=== PATIENT | male | born 1995 | race Caucasian/White ===

== ENCOUNTER 2019-03-15 09:30 | Outpatient (CLI) | payer OTHER, SELFPAY ==
--- NOTE | 2019-03-15 09:51 | EST_ITS ---
Patient Info Name: Hermes Schaeffer Age: 23 years : 1995 Gender: Male Ht: 68 in Wt: 260 lbs BSA: 2.43 m2 Exam Date: 03/15/2019 10:12 AM Exam Location: [facility] Stress Patient Status: Outpatient Admit Date: 03/15/2019 Staff Ordering Physician: Epifanio Cooper DO Attending Provider: Epifanio Cooper DO Exercise Technologist: Nancy Ledesma RDCS Exercise Physician: Epifanio Cooper DO Exam Type: CA stress test treadmill Study Info Indications R07.89 - Other chest pain A treadmill exercise stress test was performed. Summary 1. 1. Negative Brian exercise stress test for ischemic ST changes by ECG criteria. 2. 2. Good functional capacity, achieving 10 METs of workload. 3. 3. Appropriate HR response to exercise. 4. 4. Appropriate HR recovery at 1 minute post exercise. 5. 5. No imaging with stress testing. 6. 6. Patient informed of the above results. Protocol: Brian Stress ECG Details Stage: REST Duration (min): 1 min : 57 sec Speed (mph): 0.0 Grade (%): 0 HR (bpm): 86 SBP (mmHg): 131 DBP (mmHg): 65 METS: --- Stage: REST Duration (min): 10 min : 56 sec Speed (mph): 0.0 Grade (%): 0 HR (bpm): 95 SBP (mmHg): 131 DBP (mmHg): 65 METS: --- Stage: STAGE 1 Duration (min): 1 min : 0 sec Speed (mph): 1.7 Grade (%): 10 HR (bpm): 114 SBP (mmHg): 131 DBP (mmHg): 65 METS: --- Stage: STAGE 1 Duration (min): 2 min : 0 sec Speed (mph): 1.7 Grade (%): 10 HR (bpm): 120 SBP (mmHg): 131 DBP (mmHg): 65 METS: --- Stage: STAGE 1 Duration (min): 3 min : 0 sec Speed (mph): 1.7 Grade (%): 10 HR (bpm): 119 SBP (mmHg): 145 DBP (mmHg): 63 METS: --- Stage: STAGE 2 Duration (min): 1 min : 0 sec Speed (mph): 2.5 Grade (%): 12 HR (bpm): 135 SBP (mmHg): 145 DBP (mmHg): 63 METS: --- Stage: STAGE 2 Duration (min): 2 min : 0 sec Speed (mph): 2.5 Grade (%): 12 HR (bpm): 139 SBP (mmHg): 180 DBP (mmHg): 54 METS: --- Stage: STAGE 2 Duration (min): 3 min : 0 sec Speed (mph): 2.5 Grade (%): 12 HR (bpm): 144 SBP (mmHg): 180 DBP (mmHg): 54 METS: --- Stage: STAGE 3 Duration (min): 1 min : 0 sec Speed (mph): 3.4 Grade (%): 14 HR (bpm): 161 SBP (mmHg): 170 DBP (mmHg): 103 METS: --- Stage: STAGE 3 Duration (min): 2 min : 0 sec Speed (mph): 3.4 Grade (%): 14 HR (bpm): 165 SBP (mmHg): 170 DBP (mmHg): 103 METS: --- Stage: STAGE 3 Duration (min): 3 min : 0 sec Speed (mph): 3.4 Grade (%): 14 HR (bpm): 171 SBP (mmHg): 210 DBP (mmHg): 61 METS: --- Stage: RECOVERY Duration (min): 0 min : 59 sec Speed (mph): 0.0 Grade (%): 0 HR (bpm): 137 SBP (mmHg): 161 DBP (mmHg): 55 METS: --- Stage: RECOVERY Duration (min): 1 min : 59 sec Speed (mph): 0.
== END 2019-03-15 09:31 | disposition home or self-care (01) ==
PROVIDERS: PCP Emergency Medicine; Visit Provider Internal Medicine Cardiovascular Disease
DX: R07.9 Chest pain, unspecified (principal)
CPT/HCPCS: 93017

== ENCOUNTER 2019-03-19 10:40 | Outpatient (CLI) | payer OTHER, SELFPAY ==
--- NOTE | ~2019-03-19 | MR_ITS ---
EXAMINATION: MR lumbar spine wo con DATE: 03/19/2019 11:29 INDICATION: Low back pain. TECHNIQUE: Magnetic resonance imaging (MRI) of the lumbar spine was performed without intravenous con trast. Sequences included sagittal T2-weighted FSE, sagittal T2-weighted FS FSE, sagittal T1-weighted FSE, and axial T2-weighted FSE. COMPARISON: Lumbar spine radiographs 10/01/2018 FINDINGS: There is 10 degrees levoscoliosis of lumbar spine. There are chronic bilateral L5 pars defe cts. There is 5 mm anterolisthesis of L5 on S1. There is mild chronic height loss of L5 vertebral bod y posteriorly. There are Schmorl's nodes at all levels. There is mild chronic anterior wedging of T11 and T12 vertebral bodies. There is mildly decreased disc height at L4-L5. The osseous central spinal canal is developmentally small at L2 and L3. The distal spinal cord signal intensity is normal. The conus medullaris is at L1. The following disc levels are specifically discussed: L1-L2: The disc does not extend beyond the endplate margin. There is mild bilateral facet joint osteo arthritis. There is no neural foraminal stenosis. There is no central canal stenosis. L2-L3: The disc does not extend beyond the endplate margin. There is mild bilateral facet joint osteo arthritis. There is no neural foraminal stenosis. There is mild central canal stenosis. L3-L4: The disc does not extend beyond the endplate margin. There is mild bilateral facet joint osteo arthritis. There is no neural foraminal stenosis. There is mild central canal stenosis. L4-L5: The disc is bulging and has an annular fissure. There is mild bilateral facet joint osteoarthr itis. There is mild bilateral neural foraminal stenosis. There is mild central canal stenosis. L5-S1: The disc does not extend beyond the endplate margin. There is mild bilateral facet joint osteo arthritis. There is mild bilateral neural foraminal stenosis. There is no central canal stenosis. IMPRESSION: 1. Mild lumbar spondylosis. 2. Chronic bilateral L5 pars defects with grade 1 anterolisthesis of L5 on S1. 3. Lumbar levoscoliosis. Reviewed, dictated and finalized at location A. N COORDINATOR
== END 2019-03-19 10:41 | disposition home or self-care (01) ==
PROVIDERS: PCP Emergency Medicine
DX: M47.896 Other spondylosis, lumbar region (principal)
CPT/HCPCS: 72148

== ENCOUNTER 2019-11-03 19:27 | Emergency (ER) | payer OTHER, SELFPAY ==
[2019-11-03 19:40] VITALS: BP 171/89; PULSE 99; RESP 16; TEMP 37.4; O2SAT 98
--- NOTE | 2019-11-03 19:50 | ED.URI ---
HPI - URI/Sore Throat General Chief Complaint: Upper Respiratory Infection Stated Complaint: runny/stuffy nose Time Seen by Provider: 11/03/19 19:42 Source: patient and RN notes reviewed Mode of arrival: ambulatory Limitations: no limitations History of Present Illness HPI Narrative: Patient presents today complaining of nasal congestion, sneezing, nonproductive cough since yesterday. Denies fever, shortness of breath, sore throat, ear pain, nausea, vomiting, diarrhea, loss of sense of taste or smell. He took 1 dose of Zyrtec yesterday without relief, and has tried no other [id number] interventions prior to arrival. Denies history of seasonal allergies. History of tonsillectomy and adenoidectomy. History of ear tubes x4 as a child. Smokes 1 pack/day. MD elicited complaint: cough and nasal congestion Related Data Home Medications Medication Instructions Recorded Confirmed No Home Medications 11/03/19 11/03/19 Allergies Allergy/AdvReac Type Severity Reaction Status Date / Time azithromycin Allergy Unknown Unknown Verified 02/23/19 14:02 Sulfa (Sulfonamide Allergy Unknown Unknown Verified 02/23/19 14:02 Antibiotics) cefprozil [From Cefzil] Allergy Hives Verified 11/03/19 19:44 Review of Systems Review of Systems: Narrative: CONSTITUTIONAL: Denies body aches, fever, chills, or sweats. EYES: Denies visual changes, redness, or discharge. ENT: Denies rhinorrhea, sore throat, or otalgia. + Nasal congestion, sneezing CARDIOVASCULAR: Denies chest pain, palpitations, or edema. RESPIRATORY: Denies dyspnea. + Cough GASTROINTESTINAL: Denies abdominal pain, nausea, vomiting, or diarrhea. GENITOURINARY: Denies dysuria or hematuria. SKIN: Denies rash, itching, or wounds. MUSCULOSKELETAL: Denies back pain, joint pain, or myalgia. NEUROLOGIC: Denies headache, numbness, tingling, or weakness. PSYCH: Denies depression or anxiety. [facility] Past Medical History Medical History (Updated 11/04/19 @ 00:00 by [facility]) Chest pain in adult Surgical History Surgical History (Updated 02/17/19 @ 16:18 by Katia Sterling [facility]) History of cardiac radiofrequency ablation (RFA) History of tonsillectomy Family History Family History (Updated 10/04/18 @ 16:01 by DOCTOR UNKNOWN) Father Hypertension Mother Patient's mother is in good health Sibling Patient's sister is in good health Social History Social History (Updated 02/17/19 @ 16:18 by Katia Sterling [facility]) Smoking status: Unknown if ever smoked Gender identity (if verbalized by the patient): Male Comments At time of signature, I have reviewed and agree with nursing past medical, surgical, social and family history unless otherwise noted. Please see nursing chart for further information. There is no relevant family history pertinent to the presenting complaint Exam Narrative: Exam Narrative: GENERAL: Well-appearing, well-nourished, and in no acute distress. HEAD: Normocephalic, atraumatic. EYES: EOMI. No redness or drainage. Conjunctivae normal. ENT: Mucous membranes pink and moist. Nares congested. Bilateral erythematous and swollen nasal turbinates with clear nasal drainage. TMs normal bilaterally with large amount of scarring. Throat normal with some clear post nasal drainage. Uvula midline. NECK: Normal AROM. Supple. No lymphadenopathy. CHEST: No respiratory distress. Clear to auscultation. HEART: Regular rate and rhythm. No murmur appreciated. Normal peripheral pulses. MUSCULOSKELETAL: No bony tenderness. EXTREMITIES: Normal range of motion. No edema. SKIN: Warm, dry, no rash. Capillary refill normal. Normal skin turgor. NEURO: No focal deficits. Alert and oriented x3. Gait steady. PSYCH: Normal affect. No signs of depression or anxiety. Course Vital Signs Vital signs: Vital Signs Temperature 99.4 F 11/03/19 19:40 Pulse Rate 99 11/03/19 19:40 Respiratory Rate 16 11/03/19 19:40 Blood Pressure 171/89
== END 2019-11-03 19:53 | disposition home or self-care (01) ==
PROVIDERS: Emergency Provider Nurse Practitioner
DX: J30.2 Other seasonal allergic rhinitis (principal)
CPT/HCPCS: 99211; G0463

== ENCOUNTER 2020-11-11 11:14 | Emergency (ER) | payer SELFPAY ==
--- NOTE | ~2020-11-11 | XR_ITS ---
EXAMINATION: XR ankle LT min 3V EXAM DATE: 11/11/2020 11:53 INDICATION: Injury from jumping into a council. Left ankle pain, initial encounter. TECHNIQUE: Left ankle frontal, lateral and oblique projections obtained and reviewed. Correlation is made to left foot examination 06/22/2013. FINDINGS: The left ankle mortise appears intact. There are no acute fractures or dislocations ident ified. There is no subcutaneous gas. The soft tissue is unremarkable. There are no radiopaque for eign bodies. IMPRESSION: 1. XR ankle LT min 3V exam without acute osseous findings. Reviewed, dictated and finalized at location A.
[2020-11-11 11:19] VITALS: BP 148/75; PULSE 88; RESP 16; TEMP 36.4; O2SAT 100
[2020-11-11 11:41] VITALS: BP 145/77; PULSE 80; RESP 16; O2SAT 98
--- NOTE | 2020-11-11 12:14 | ED.LOWEXIN ---
HPI - Extremity Injury (Lower) General Chief Complaint: Extremity Injury, Lower <MINNA Mane Last Filed: 11/11/20 12:19> Stated Complaint: ankle injury <MINNA Mane Last Filed: 11/11/20 12:19> Time Seen by Provider: 11/11/20 11:33 <MINNA Mane Last Filed: 11/11/20 12:19> Source: patient <MINNA Mane Last Filed: 11/11/20 12:19> Mode of arrival: wheelchair <MINNA Mane Last Filed: 11/11/20 12:19> Limitations: no limitations <MINNA Mane Last Filed: 11/11/20 12:19> History of Present Illness HPI Narrative: This is a 25-year-old male that presents to the emergency department for left ankle pain after an injury today. Reports he had jumped a couple of feet down into a paimiut bed. Reports the left ankle twisted when he landed. He felt a pop. Since he has had pain and swelling in the ankle. Denies other injuries, decreased range of motion, or numbness. <MINNA Mane Last Filed: 11/11/20 12:19> Related Data Home Medications: Home Medications Medication Instructions Recorded Confirmed dextroamphetamine-amphetamine 20 mg PO BID 11/11/20 [Adderall] <MINNA Mane Last Filed: 11/11/20 12:19> Allergies/Adverse Reactions: Allergies Allergy/AdvReac Type Severity Reaction Status Date / Time azithromycin Allergy Unknown Unknown Verified 11/11/20 11:42 Sulfa (Sulfonamide Allergy Unknown Unknown Verified 11/11/20 11:42 Antibiotics) cefprozil [From Cefzil] Allergy Hives Verified 11/11/20 11:42 <MINNA Mane Last Filed: 11/11/20 12:19> Review of Systems Review of Systems: CONSTITUTIONAL: Denies fever MUSCULOSKELETAL: Reports joint pain, and myalgia. NEUROLOGIC: Denies numbness, or weakness. <MINNA Mane Last Filed: 11/11/20 12:19> All systems reviewed & are unremarkable except as noted in HPI and below <Lluvia Irving PA-C - Last Filed: 11/11/20 12:19> PMFSH Past Medical History Medical History: Medical History (Updated 11/11/20 @ 12:19 by Lluvia Irving PA-C) Chest pain in adult History of ADHD <Lluvia Irving PA-C - Last Filed: 11/11/20 12:19> Surgical History Surgical History: Surgical History (Updated 02/17/19 @ 16:18 by Katia Sterling, [facility]) History of cardiac radiofrequency ablation (RFA) History of tonsillectomy <Lluvia Irving PA-C - Last Filed: 11/11/20 12:19> Family History Family History: Family History (Updated 10/04/18 @ 16:01 by DOCTOR UNKNOWN) Father Hypertension Mother Patient's mother is in good health Sibling Patient's sister is in good health <Lluvia Irving PA-C - Last Filed: 11/11/20 12:19> Social History Social History: Social History (Updated 11/11/20 @ 12:17 by Lluvia Irving PA-C) Smoking status: Current every day smoker Gender identity (if verbalized by the patient): Male <Lluvia Irving PA-C - Last Filed: 11/11/20 12:19> Exam Narrative: GENERAL: Well-appearing, well-nourished, and in no acute distress. HEAD: Normocephalic, atraumatic. EYES: EOMI. EXTREMITIES: Normal range of motion. Mild edema about the left lateral malleoli, tender to palpation. Normal DP pulses. Normal sensation SKIN: Warm, dry, no rash. NEURO: No focal deficits. Alert and oriented x3. PSYCH: Normal mood and affect <Lluvia Irving PA-C - Last Filed: 11/11/20 12:19> Course [employer]/PA Physician Supervision I did not see this patient nor was the care plan discussed with me. I was available for evaluation and consultation, I agree with the documentation as above <Shahriar Desouza MD - Last Filed: 11/11/20 16:14> Vital Signs Vital signs: Vital Signs Temperature 36.4 C 11/11/20 11:19 Pulse Rate 88 11/11/20 11:19 Respiratory Rate 16 11/11/20 11:19 Blood Pressure 148/75 H 11/11/20 11:19 Pulse Oximetry 100 11/11/20 11:19 Temperature 36.4
[2020-11-11] MEDS: KETOROLAC (*BKC) 60 MG/2 ML VIAL IM (12:59)
== END 2020-11-11 13:02 | disposition home or self-care (01) ==
PROVIDERS: Emergency Provider Emergency Medicine; PCP Family Medicine Sports Medicine
DX: S93.402A Sprain of unspecified ligament of left ankle, initial encounter (principal); F17.210 Nicotine dependence, cigarettes, uncomplicated; X50.1XXA Overexertion from prolonged static or awkward postures, initial encounter
CPT/HCPCS: 73610; 96372; 99283; J1885

== ENCOUNTER 2021-07-23 21:49 | Emergency (ER) | payer OTHER, SELFPAY ==
--- NOTE | ~2021-07-23 | XR_ITS ---
EXAMINATION: XR chest 2V Exam Date/Time: 07/23/2021 22:15 CDT HISTORY: CP, HX HEART ABLASION, SMOKER Comparison: 12/24/2017. RESULT: Lines, tubes, and devices: None. Lungs and pleura: Clear. Cardiomediastinal silhouette: Stable cardiomediastinal silhouette. Other: No acute osseous or upper abdominal finding. IMPRESSION: No acute cardiopulmonary process. Reviewed, dictated and finalized at location K.
--- NOTE | 2021-07-23 21:53 | ECG_ITS ---
Measurements Intervals [place] Rate: 90 P: 79 [place]: 146 QRS: 56 QRSD: 85 T: 80 QT: 320 QTc: 393 Interpretive Statements SINUS RHYTHM NO PREVIOUS ECG AVAILABLE FOR COMPARISON Electronically Signed On 07-24-2021 22:09:08 CDT by Marion Cohen M.D.
[2021-07-23 21:59] VITALS: BP 149/93; PULSE 106; RESP 18; TEMP 36.7; O2SAT 100
[2021-07-23 22:22] LABS: Basophils Absolute Auto 0.1 K/mm3 (0.0-0.1); Basophils Percent Auto 1.1 % (0.2-1.2); Eosinophils Absolute Auto 0.2 K/mm3 (0-0.3); Eosinophils Percent Auto 1.9 % (0-4.4); Hemoglobin 16.5 g/dL (14.0-18.0); Immature Granulocyte Absolute 0.03 K/mm3 (0.00-0.031); Immature Granulocyte Percent A 0.3 % (0-0.5); Lymphocytes Absolute Auto 2.87 K/mm3 (0.9-3.2); Lymphocytes Percent Auto 26.1 % (18.3-44.2); Mean Corpuscular HGB Conc 34.4 g/dl (32-36); Mean Corpuscular Hemoglobin 29.3 pg (26-34); Mean Corpuscular Volume 85.3 fl (80-100); Mean Platelet Volume 9.8 fl (7.4-10.4); Monocytes Absolute Auto 0.8 K/mm3 (0.1-0.6); Monocytes Percent Auto 7.5 % (2.6-8.5); Neutrophils Absolute Auto 6.9 K/mm3 (1.3-6.7); Neutrophils Percent Auto 63.1 % (45.5-73.1); Platelet Count Result 337 k/mm3 (150-375); Red Blood Count 5.63 M/mm3 (4.6-6.20); Red Cell Distribution Width 12.3 % (11.5-14.5)
[2021-07-23 22:36] LABS: Prothrombin Time 13.1 Seconds (11.1-14.7)
[2021-07-23 22:37] LABS: Partial Thromboplastin Time 25.4 SECONDS (22.3-36.8)
--- NOTE | 2021-07-23 22:44 | ED.CHESTPAIN ---
HPI - Chest Pain General Chief Complaint: Chest Pain Stated Complaint: chest pain/ upper back pain Time Seen by Provider: 07/23/21 22:04 History of Present Illness HPI narrative: Since patient has had some discomfort in the epigastric region into his back, he had been seen at [facility] and diagnosis possible heartburn, he came in today because he was feeling like the pain was coming up to his chest. Also endorses some nausea, he states that his father did have pancreatitis. Related Data Home Medications Medication Instructions Recorded Confirmed dextroamphetamine-amphetamine 20 20 mg PO BID 11/11/ mg tablet (Adderall) Allergies Allergy/AdvReac Type Severity Reaction Status Date / Time azithromycin Allergy Unknown Unknown Verified 07/23/21 22:02 Sulfa (Sulfonamide Allergy Unknown Unknown Verified 07/23/21 22:02 Antibiotics) cefprozil [From Cefzil] Allergy Hives Verified 07/23/21 22:02 Review of Systems Review of Systems: CONST: No fever. HEENT: No sore throat C/V: chest pain RESP: No cough GI: Reports abdominal pain, nausea : No dysuria. M/S: No joint pain. SKIN: No rash. NEURO: [No headache or focal numbness or weakness] PSYCH: [No depression] [facility] Past Medical History Medical History Chest pain in adult History of ADHD Surgical History Surgical History History of cardiac radiofrequency ablation (RFA) History of tonsillectomy Family History Family History (Updated 07/23/21 @ 22:46 by Jocelyn Wong MD) Father Hypertension Pancreatitis Mother Patient's mother is in good health Sibling Patient's sister is in good health Social History Social History Smoking status: Current every day smoker Gender identity (if verbalized by the patient): Male Exam Narrative: EXAMINATION OF ORGAN SYSTEMS/BODY AREAS: Constitutional: Vital signs per nursing GENERAL:[No acute distress, non-toxic appearing.] HEAD: Normal with no signs of head trauma. EYES: EOMI, conjunctiva normal ENT: Hearing grossly intact LUNGS: Nonlabored breathing. HEART: Mildly tachycardic ABD: [Soft], very mildly tender to palpation epigastric region EXT: Normal range of motion SKIN: [No rashes or lesions.] NEURO: [Alert and oriented x 3. No gross focal sensory or strength deficits.] PSYCH: Normal affect Course Vital Signs Vital signs: Vital Signs Temperature 98.0 F 07/23/21 21:59 Pulse Rate 106 H 07/23/21 21:59 Respiratory Rate 18 07/23/21 21:59 Blood Pressure 149/93 H 07/23/21 21:59 Pulse Oximetry 100 07/23/21 21:59 Oxygen Delivery Room Air 07/23/21 21:59 Temperature 98.0 F 07/23/21 21:59 Pulse Rate 89 07/23/21 23:07 Respiratory Rate 16 07/23/21 23:07 Blood Pressure 154/99 H 07/23/21 23:07 Pulse Oximetry 100 07/23/21 23:07 Oxygen Delivery Room Air 07/23/21 22:31 MDM - Chest Pain MDM Narrative Medical decision making narrative: 35-year-old male presenting with some epigastric pain that radiates up to his chest with some nausea, and kind of going to his back, vital stable, exam shows well-appearing patient with mild tenderness palpation over the epigastrium, no focal neurologic or vascular deficits, I low concern for dissection given his well appearance, considering possible pancreatitis or gastritis at this time, very unlikely cardiac abnormality as it is not worse with exertion, all labs are within acceptable limits, he is feeling better after the medication, he stable for discharge home with return precautions and follow-up with his primary care doctor, advised to take a bland diet. Lab Data Result diagrams: 07/23/21 22:16 07/23/21 22:16 Labs: Lab Results 07/23/21 07/23/21 07/23/21 Range/Units 22:16 22:16 22:16 WBC 11.0 H (4.5-10.0) K/mm3 RBC 5.63 (4.6
[2021-07-23] MEDS: ONDANSETRON HCL ODT 4 MG TABLET PO (22:56)
[2021-07-23 22:57] LABS: Troponin I < 0.012 ng/mL (0.000-0.034)
[2021-07-23 23:00] LABS: Alanine Aminotransferase 27 U/L (6-50); Albumin Level 4.7 g/dL (3.5-5.1); Alkaline Phosphatase 56 U/L (38-126); Anion Gap 13 mmol/L (8-16); Aspartate Amino Transferase 35 U/L (17-59); Bilirubin,Total 0.7 mg/dL (0.2-1.3); Blood Urea Nitrogen 12 mg/dL (9-20); Calcium 9.6 mg/dL (8.4-10.2); Carbon Dioxide 18 mmol/L (22-30); Chloride 104 mmol/L (98-107); Estimated CRCL calculation 158 ml/min; Estimated Glomerular Filt Rate > 60; Glucose 104 mg/dL (65-110); Lipase 62 U/L (23-300); Potassium 4.6 mmol/L (3.4-5.0); Sodium 135 mmol/L (137-145)
[2021-07-23] MEDS: FAMOTIDINE 20 MG TABLET PO (23:06)
[2021-07-23 23:07] VITALS: BP 154/99; PULSE 89; RESP 16; O2SAT 100
--- NOTE | 2021-07-23 23:08 | PC.NURSE ---
Assuming care of pt.
== END 2021-07-23 23:24 | disposition home or self-care (01) ==
PROVIDERS: Emergency Provider Emergency Medicine; PCP Family Medicine Sports Medicine
DX: K29.70 Gastritis, unspecified, without bleeding (principal); R07.9 Chest pain, unspecified; F90.9 Attention-deficit hyperactivity disorder, unspecified type; F17.200 Nicotine dependence, unspecified, uncomplicated
CPT/HCPCS: 36415; 71046; 80053; 83690; 84484; 85025; 85610; 85730; 93005; 99284; A9270

== ENCOUNTER 2021-07-29 16:14 | Emergency (ER) | payer OTHER, SELFPAY ==
[2021-07-29 16:16] VITALS: BP 141/93; PULSE 113; RESP 14; TEMP 36.6; O2SAT 99
[2021-07-29 16:24] VITALS: PULSE 112; RESP 22; O2SAT 98
[2021-07-29] MEDS: methylPREDNISolone SOD SUCC 125 MG VIAL IV PUSH (16:49)
[2021-07-29] MEDS: diphenhydrAMINE HCl INJ 50 MG/ML VIAL 25 MG IV PUSH (16:49)
[2021-07-29] MEDS: SODIUM CHLORIDE 0.9% IV 1,000 ML 999 ML IV CONT (16:49)
[2021-07-29 16:50] VITALS: BP 155/95; PULSE 97; RESP 15; O2SAT 98
[2021-07-29 17:00] LABS: Basophils Absolute Auto 0.1 K/mm3 (0.0-0.1); Basophils Percent Auto 0.3 % (0.2-1.2); Eosinophils Absolute Auto 0.2 K/mm3 (0-0.3); Eosinophils Percent Auto 1.5 % (0-4.4); Hematocrit 46.6 % (42.0-52.0); Hemoglobin 16.3 g/dL (14.0-18.0); Immature Granulocyte Absolute 0.07 K/mm3 (0.00-0.031); Immature Granulocyte Percent A 0.5 % (0-0.5); Lymphocytes Absolute Auto 2.87 K/mm3 (0.9-3.2); Lymphocytes Percent Auto 19.9 % (18.3-44.2); Mean Corpuscular Hemoglobin 29.6 pg (26-34); Mean Corpuscular Volume 84.6 fl (80-100); Mean Platelet Volume 10.1 fl (7.4-10.4); Monocytes Absolute Auto 0.7 K/mm3 (0.1-0.6); Monocytes Percent Auto 4.9 % (2.6-8.5); Neutrophils Absolute Auto 10.5 K/mm3 (1.3-6.7); Neutrophils Percent Auto 72.9 % (45.5-73.1); Platelet Count Result 335 k/mm3 (150-375); Red Blood Count 5.51 M/mm3 (4.6-6.20); Red Cell Distribution Width 12.3 % (11.5-14.5); White Blood Count 14.4 K/mm3 (4.5-10.0)
[2021-07-29 17:12] LABS: Alanine Aminotransferase 27 U/L (6-50); Albumin Level 4.7 g/dL (3.5-5.1); Alkaline Phosphatase 61 U/L (38-126); Anion Gap 9 mmol/L (8-16); Aspartate Amino Transferase 25 U/L (17-59); Bilirubin,Total 0.5 mg/dL (0.2-1.3); Blood Urea Nitrogen 19 mg/dL (9-20); Calcium 9.3 mg/dL (8.4-10.2); Carbon Dioxide 23 mmol/L (22-30); Chloride 106 mmol/L (98-107); Estimated Glomerular Filt Rate > 60; Glucose 96 mg/dL (65-110); Potassium 3.7 mmol/L (3.4-5.0); Sodium 138 mmol/L (137-145)
--- NOTE | 2021-07-29 17:45 | ED.ALLEREA ---
HPI - Allergic Reaction General Chief complaint: Allergic Reaction Stated complaint: POSS REACTION TO NEW DRUG Time Seen by Provider: 07/29/21 16:34 Source: patient Mode of arrival: ambulatory Limitations: no limitations History of Present Illness HPI narrative: 25-year-old male presents today with possible allergic reaction. Patient states the only new thing with him is new medication for patch problems all. Patient states he started a couple days ago. Patient was at work today when he noticed facial swelling hand swelling feet swelling and chest tightness. Patient denies shortness of breath, difficulty in swallowing, or difficulty in breathing. Patient then went home and proceeded to come to the ER. Per patient and significant other swelling is decreased since when he got home. Patient did not take any medications to help with the reaction. Patient denies any new soaps, lotions, detergents. 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 Patient states is the first that he has ever been at the building he was at. 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 Denies any contact with any irritants or chemicals. Related Data Home Medications Medication Instructions Recorded Confirmed dextroamphetamine-amphetamine 20 20 mg PO BID 11/11/20 mg tablet (Adderall) pantoprazole 40 mg tablet,delayed tablet PO 07/29/21 07/29/21 release Allergies Allergy/AdvReac Type Severity Reaction Status Date / Time azithromycin Allergy Unknown Unknown Verified 07/29/21 16:15 Sulfa (Sulfonamide Allergy Unknown Unknown Verified 07/29/21 16:15 Antibiotics) cefprozil [From Cefzil] Allergy Hives Verified 07/29/21 16:15 pantoprazole Allergy Swelling Verified 07/29/21 16:49 Review of Systems Review of Systems: CONSTITUTIONAL: Denies fever, chills, or sweats. EYES: Denies visual changes, redness, or discharge. ENT: Denies rhinorrhea, congestion, sore throat, or otalgia. CARDIOVASCULAR: Swelling to face, hands, and feet. Chest tightness. Denies palpitations, or edema. RESPIRATORY: Denies cough or dyspnea. GASTROINTESTINAL: Denies abdominal pain, nausea, vomiting, or diarrhea. GENITOURINARY: Denies dysuria or hematuria. SKIN: Denies rash or itching. MUSCULOSKELETAL: Denies back pain, joint pain, or myalgia. NEUROLOGIC: Denies headache, numbness, dizziness, or weakness. PSYCHIATRIC: Denies anxiety or depression. [facility] Past Medical History Medical History Chest pain in adult History of ADHD Surgical History Surgical History History of cardiac radiofrequency ablation (RFA) History of tonsillectomy Family History Family History (Updated 07/23/21 @ 22:46 by Jocelyn Wong MD) Father Hypertension Pancreatitis Mother Patient's mother is in good health Sibling Patient's sister is in good health Social History Social History Smoking status: Current every day smoker Gender identity (if verbalized by the patient): Male Exam Narrative: GENERAL: Well-appearing, well-nourished, and in no acute distress. HEAD: Normocephalic, atraumatic. EYES: PERRLA and EOMI. ENT: Slight swelling noted to bilateral cheeks. Nares clear, no rhinorrhea or epistaxis. Mucous membranes moist. Oropharynx without tonsillar hypertrophy exudate or other lesions. Bilateral TMs pearly cain nonbulging. Dentition intact. NECK: Supple. No adenopathy or masses. No carotid bruits or JVD. No edema noted. CHEST: Clear to auscultation. No respiratory distress. No wheezes rales or rhonchi HEART: Regular rate and rhythm. No murmur heard. Normal peripheral pulses. ABDOMEN: Soft, nontender, nondistended, normal active bowel sounds. EXTREMITIES: Normal range of motion. No edema. SKIN: Warm, dry, no rash. NEURO: No focal deficits. Alert and oriented x3. PSYCH: Normal mood and affect. Course Course Denise
[2021-07-29 18:49] VITALS: BP 140/79; PULSE 101; RESP 19; O2SAT 99
== END 2021-07-29 18:50 | disposition home or self-care (01) ==
PROVIDERS: Emergency Provider Nurse Practitioner Family; PCP Family Medicine Sports Medicine
DX: T78.40XA Allergy, unspecified, initial encounter (principal); R22.0 Localized swelling, mass and lump, head; R22.43 Localized swelling, mass and lump, lower limb, bilateral
CPT/HCPCS: 36415; 80053; 85025; 96361; 96374; 96375; 99284; J1200; J2930; J7030

== ENCOUNTER 2022-11-16 13:39 | Emergency (ER) | payer OTHER, SELFPAY ==
--- NOTE | ~2022-11-16 | XR_ITS ---
EXAM: XR knee LT min 4V DATE: 11/16/2022 14:36 HISTORY: Pain and Swelling, NO INJURY . COMPARISON: X-ray tib-fib 02/22/2011. FINDINGS: Normal mineralization. No fracture or dislocation. No lytic or blastic lesion. Joint space s are maintained. No erosion or periosteal change. Soft tissues within normal limits. Small knee join t effusion. IMPRESSION: No acute osseous finding in the left knee. Reviewed, dictated and finalized at location K.
[2022-11-16 13:48] VITALS: BP 158/90; PULSE 104; RESP 18; TEMP 36.5; O2SAT 100
--- NOTE | 2022-11-16 15:27 | ED.GENADULT ---
HPI - General Adult General Chief complaint: Extremity Problem,Nontraumatic Stated complaint: left knee and calf swelling Time Seen by Provider: 11/16/22 14:51 Source: patient Mode of arrival: ambulatory Limitations: no limitations History of Present Illness HPI narrative: This is a 27-year-old male who presents to the ED with chief complaint of left knee pain and swelling ongoing for the past 3 days. Patient works as an electrician chief and reports he was in [place] for work recently. He reports that he was doing a lot of climbing and was down on his knees for work quite a bit on Thursday and . Reports that over the last couple of days he has had intermittent pains in the knee and feels like it is locking up at times. He reports it is specifically worse when he flexes the knee and tries to lift the leg. Also reports a little bit of pain that radiates down into the calf. Denies numbness, weakness, back pain, hip pain, lower leg pain, fevers, chills. Denies any history of blood clots, cancer history. No recent hospitalization or immobility. He had a 2-hour flight back home from [place]. Related Data Home Medications Medication Instructions Recorded Confirmed dextroamphetamine-amphetamine 20 20 mg PO BID 11/11/20 mg tablet (Adderall) pantoprazole 40 mg tablet,delayed tablet PO 07/29/21 07/29/21 release Allergies Allergy/AdvReac Type Severity Reaction Status Date / Time azithromycin Allergy Unknown Unknown Verified 11/16/22 13:57 Sulfa (Sulfonamide Allergy Unknown Unknown Verified 11/16/22 13:57 Antibiotics) cefprozil [From Cefzil] Allergy Hives Verified 11/16/22 13:57 pantoprazole Allergy Swelling Verified 11/16/22 13:57 Review of Systems Review of Systems: All systems as dictated in [facility] Past Medical History Medical History Chest pain in adult History of ADHD Surgical History Surgical History History of cardiac radiofrequency ablation (RFA) History of tonsillectomy Family History Family History (Updated 07/23/21 @ 22:46 by Jocelyn Wong MD) Father Hypertension Pancreatitis Mother Patient's mother is in good health Sibling Patient's sister is in good health Social History Social History Smoking status: Current every day smoker Gender identity (if verbalized by the patient): Male Exam Narrative: GENERAL: Well-appearing, well-nourished, and in no acute distress. HEAD: Normocephalic, atraumatic. EYES: PERRLA and EOMI. ENT: Nares clear, no rhinorrhea or epistaxis. Mucous membranes moist. Oropharynx without tonsillar hypertrophy exudate or other lesions. NECK: Supple. No adenopathy or masses. CHEST: No respiratory distress. Clear to auscultation. No wheezes rales or rhonchi HEART: Regular rate and rhythm. No murmur heard. Normal peripheral pulses. ABDOMEN: Soft, nontender, nondistended, normal active bowel sounds. MSK: LLE: Mild area of swelling to the superior medial knee. This area is mildly tender. No warmth. Full range of motion of the knee. No edema or swelling of the calf. No calf tenderness. Pain is recreated with resisted flexion. Neurovascular intact distally. RLE: Benign SKIN: Warm, dry, no rash. NEURO: Alert and oriented x3. No focal deficits. PSYCH: Normal mood and affect. Course Vital Signs Vital signs: Vital Signs Temperature 97.7 F 11/16/22 13:48 Pulse Rate 104 H 11/16/22 13:48 Respiratory Rate 18 11/16/22 13:48 Blood Pressure 158/90 H 11/16/22 13:48 Pulse Oximetry 100 11/16/22 13:48 Oxygen Delivery Room Air 11/16/22 13:48 Temperature 97.7 F 11/16/22 13:48 Pulse Rate 104 H 11/16/22 13:48 Respiratory Rate 18 11/16/22 13:48 Blood Pressure 158/90 H 11/16/22 13:48 Pulse Oximetry 100 11/16/22 13:48 Oxygen Delivery Room Air 11/16/22 13:48 M
== END 2022-11-16 16:12 | disposition home or self-care (01) ==
PROVIDERS: Emergency Provider Physician Assistant; PCP Family Medicine Sports Medicine
DX: M25.562 Pain in left knee (principal); F90.9 Attention-deficit hyperactivity disorder, unspecified type; F17.200 Nicotine dependence, unspecified, uncomplicated
CPT/HCPCS: 73564; 99283